=== PATIENT | male | born 1950 | race Two or more races ===

== ENCOUNTER 2017-02-26 15:18 | Emergency (ER) | payer OTHER ==
--- NOTE | 2017-02-26 15:49 | EDPHY ---
H & P Time Seen by Provider: 02/26/17 15:41 HPI/ROS: Chief complaint. Stomach pain HPI. 67-year-old male with history of Crohn's disease presents with 1 month history of periumbilical abdominal pain. It was somewhat worse last evening. He describes as sharp without radiation. No vomiting. Occasional diarrhea. No fever. No urinary symptoms. ROS Constitutional. no fever/chills, no weakness Eyes. no problems with vision ENT. no sore throat, no nasal drainage Cardiovascular. no chest pain Respiratory. no shortness of breath, no cough Abdominal. Mid abdominal pain without vomiting. Occasional diarrhea . no problems urinating MS. no calf pain/swelling, no neck/back pain, no joint pain Skin. no rash Lymph. no swollen glands Neuro. no headache, no dizziness, no difficulty walking or with speech Past Medical/Surgical History: Crohn's Social History: , nonsmoker, no alcohol Smoking Status: Current every day smoker Physical Exam: General Appearance: Alert well-developed male mild distress vital signs are stable Eyes: Pupils equal and round no pallor or injection. ENT, Mouth: Mucous membranes are moist. Respiratory: There are no retractions, lungs are clear to auscultation. Cardiovascular: Regular rate and rhythm. Gastrointestinal: Abdomen is soft with minimal tenderness in the periumbilical area. No rebound tenderness. No masses. Bowel sounds are normal Neurological: Awake and alert, sensory and motor exams grossly normal. Skin: Warm and dry, no rashes. Musculoskeletal: Neck is supple nontender. Extremities symmetrical, full range of motion. Psychiatric: Patient is oriented X 3, there is no agitation. Constitutional: Initial Vital Signs Temperature (C) 36.8 C 02/26/17 15:30 Heart Rate 63 02/26/17 15:30 Respiratory Rate 16 02/26/17 15:30 Blood Pressure 114/69 02/26/17 15:30 O2 Sat (%) 96 02/26/17 15:30 O2 Delivery Mode Room Air Allergies/Adverse Reactions: No Known Allergies Allergy (Verified 04/24/14 21:07) Home Medications: Medication Instructions Recorded Tamsulosin HCl [Flomax] 0.4 mg PO DAILY8 #4 cap 02/26/17 oxyCODONE/APAP 5/325 [Percocet 1 tab PO Q4-6PRN PRN #14 tab 02/26/17 5/325] Medical Decision Making - Diagnostics Imaging Results: Imaging Impressions Abdomen CT 02/26/17 16:02 Impression: 1. Right ureteral calculus at the L3 level with associated mild obstructive uropathy. 2. See above report for additional findings. Results called and discussed with RIDGE HURST M.D. on 02/26/2017 at 18:39 CT abdomen and pelvis with IV contrast shows a 4 x 6 mm stone in the mid right ureter with mild proximal hydronephrosis Procedures: IV normal saline ED Course/Re-evaluation: Re-evaluation 6:45 p.m.--patient is stable. He and I discussed imaging study results laboratory evaluation, treatment plan including importance of follow-up and further evaluation as well as criteria for return. He is comfortable going home. He expresses understanding and agreement I consulted and discussed the case with Dr. Chong who agrees with care-- pain medication, Flomax, urine strainers and will see the patient in the office. Differential Diagnosis: I thought the patient would have diverticulitis or exacerbation of Crohn's. No evidence for this or small-bowel obstruction. He has a kidney stone in the right mid ureter that apparently has been there for several weeks. No evidence for urinary tract infection or kidney failure - Data Points Laboratory Results: Laboratory Results 02/26/17 15:46 02/26/17 15:46 02/26/17 02/26/17 02/26/17 16:00 15:46 15:46 WBC 8.04 10^3/uL 10^3/uL (3.80-9.50) RBC 5.27 10^6/uL 10^6/uL (4.40-6.38) Hgb 15.6 g/dL g/dL (13.7-17.5) Hct 45.7 % % (40.0-51.0) MCV 86.7 fL fL (81.5-99.8) MCH 29.6 pg pg (27.9-34.1) MCHC 34.1 g/dL g/dL (32.4-36.7) RDW 13.5 % % (11.5-15.2) Plt Count 352 10^3/uL 10^3/uL (150-400) MPV 9.5 fL fL (8.7-11.7) Neut % (Auto) 58.6 % % (39.3-74.2) Lymph % (Auto) 31.5 % % (15.0-45.0) [place] % (Auto) 6.5 % % (4.5-13.0) Eos % (Auto) 2.6 % % (0.6-7.6) Baso % (Auto) 0.6 % % (0.3-1.7) Nucleat RBC Rel Count 0.0 % % (0.0-0.2) Absolute Neuts (auto) 4.71 10^3/uL 10^3/uL (1.70-6.50) Absolute Lymphs (auto) 2.53 10^3/uL 10^3/uL (1.00-3.00) Absolute Monos (auto) 0.52 10^3/uL 10^3/uL (0.30-0.80) Absolute Eos (auto) 0.21 10^3/uL 10^3/uL (0.03-0.40) Absolute Basos (auto) 0.05 10^3/uL 10^3/uL (0.02-0.10) Absolute Nucleated RBC 0.00 10^3/uL 10^3/uL (0-0.01) Immature Gran % 0.2 % % (0.0-1.1) Immature Gran # 0.02 10^3/uL 10^3/uL (0.00-0.10) Sodium 142 mEq/L mEq/L (134-144) Potassium 4.2 mEq/L mEq/L (3.5-5.2) Chloride 106 mEq/L mEq/L (97-110) Carbon Dioxide 26 mEq/l mEq/l (22-31) Anion Gap 10 mEq/L mEq/L (8-16) BUN 13 mg/dL mg/dL (7-23) Creatinine 0.5 mg/dL L mg/dL (0.7-1.3) Estimated GFR > 60 Glucose 108 mg/dL H mg/dL (70-100) Calcium 9.5 mg/dL mg/dL (8.5-10.4) Total Bilirubin 1.1 mg/dL mg/dL (0.1-1.4) Conjugated Bilirubin 0.4 mg/dL mg/dL (0.0-0.5) Unconjugated Bilirubin 0.7 mg/dL mg/dL (0.0-1.1) AST 31 IU/L IU/L (17-59) ALT 35 IU/L IU/L (21-72) Alkaline Phosphatase 95 IU/L IU/L (38-126) Total Protein 8.0 g/dL g/dL (6.3-8.2) Albumin 4.3 g/dL g/dL (3.5-5.0) Lipase 91.0 IU/L IU/L (23-300) Urine Color YELLOW Urine Appearance CLEAR Urine pH 5.0 (5.0-7.5) Ur Specific [place] 1.019 (1.002-1.030) Urine Protein NEGATIVE (NEGATIVE) Urine Ketones NEGATIVE (NEGATIVE) Urine Blood 1+ H (NEGATIVE) Urine Nitrate NEGATIVE (NEGATIVE) Urine Bilirubin NEGATIVE (NEGATIVE) Urine Urobilinogen NEGATIVE EU EU (0.2-1.0) Ur Leukocyte Esterase NEGATIVE (NEGATIVE) Urine RBC 5-10 /hpf H /hpf (0-3) Urine WBC 1-3 /hpf /hpf (0-3) Ur Epithelial Cells NONE SEEN /lpf /lpf (NONE-1+) Urine Mucus 3+ /lpf H /lpf (NONE-1+) Urine Glucose NEGATIVE (NEGATIVE) Medications Given: Discontinued Medications Sodium Chloride (Ns) 1,000 mls @ 0 mls/hr IV ONCE ONE PRN Reason: Wide Open Stop: 02/26/17 16:03 Last Admin: 02/26/17 16:25 Dose: 1,000 mls Departure - Departure Disposition: Home, Routine, Self-Care Clinical Impression: Renal colic on right side Condition: Good Instructions: How to Strain Your Urine (ED), Kidney Stones (ED) Additional Instructions: Drink plenty of fluids and stay hydrated. Ibuprofen 600 mg every 6 hours and Percocet as needed for pain. Strain all urine and save stone for Urology. Flomax also to help with passage of stone. Return for worsening pain, fever, vomiting. Call Urology on Tuesday to arrange follow-up and further evaluation. Referrals: KRISTOPHER SPRING [Primary Care Provider] - As per Instructions Elvin Chong MD [Medical Doctor] - 2-3 days, call for appt. Prescriptions: oxyCODONE/APAP 5/325 [Percocet 5/325] 1 tab PO Q4-6PRN PRN #14 tab PRN Reason: Pain, Moderate Tamsulosin HCl [Flomax] 0.4 mg PO DAILY8 #4 cap
[2017-02-26] MEDS ORDERED: NS 1,000 ML IV ONE (16:02)
[2017-02-26 16:08] LABS: % IMMATURE GRANULYOCYTES 0.2 % (0.0-1.1); ABSOLUTE IMMATURE GRANULOCYTES 0.02 10^3/uL (0.00-0.10); ADD DIFF? NO; ADD MORPH? NO; ADD SCAN? NO; ATYPICAL LYMPHOCYTE FLAG 20 (0-99); FRAGMENT RBC FLAG 0 (0-99); HEMATOCRIT 45.7 % (40.0-51.0); HEMOGLOBIN 15.6 g/dL (13.7-17.5); LEFT SHIFT FLG 0 (0-99); LIPEMIA HEMOLYSIS FLAG 90 (0-99); MEAN CELL HEMOGLOBIN 29.6 pg (27.9-34.1); MEAN CELL HEMOGLOBIN CONCENTR. 34.1 g/dL (32.4-36.7); MEAN CELL VOLUME 86.7 fL (81.5-99.8); MEAN PLATELET VOLUME 9.5 fL (8.7-11.7); PLATELET CLUMPS FLAG 10 (0-99); PLATELET COUNT 352 10^3/uL (150-400); RED BLOOD CELL COUNT 5.27 10^6/uL (4.40-6.38); RED CELL DISTRIBUTION WIDTH 13.5 % (11.5-15.2)
[2017-02-26 16:12] LABS: COLOR YELLOW; LEUKOCYTE ESTERASE,URINE NEGATIVE (NEGATIVE); NITRITE,URINE NEGATIVE (NEGATIVE)
[2017-02-26 16:13] LABS: ALANINE AMINOTRANSFERASE 35 IU/L (21-72); ALBUMIN 4.3 g/dL (3.5-5.0); ALKALINE PHOSPHATASE 95 IU/L (38-126); ANION GAP 10 mEq/L (8-16); ASPARTATE AMINOTRANSFERASE 31 IU/L (17-59); BILIRUBIN,TOTAL 1.1 mg/dL (0.1-1.4); CALCIUM 9.5 mg/dL (8.5-10.4); CARBON DIOXIDE 26 mEq/l (22-31); CHLORIDE 106 mEq/L (97-110); CREATININE 0.5 mg/dL (0.7-1.3); GLOMERULAR FILTRATION RATE > 60; GLUCOSE 108 mg/dL (70-100); POTASSIUM 4.2 mEq/L (3.5-5.2); SODIUM 142 mEq/L (134-144)
[2017-02-26 16:15] LABS: MUCUS 3+ /lpf (NONE-1+)
[2017-02-26] MEDS ORDERED: IOPAMIDOL (ISOVUE-300) 100 ML BTL IV ONE (16:43)
[2017-02-26 16:52] LABS: BILIRUBIN-CONJUGATED 0.4 mg/dL (0.0-0.5); BILIRUBIN-UNCONJUGATED 0.7 mg/dL (0.0-1.1)
[2017-02-26 18:15] VITALS: RESP 16
[2017-02-26] MEDS ORDERED: OXYCODONE/APAP 5/325MG PREPACK#4 BTL TAKEHOME ONE (18:59)
[2017-02-26] MEDS ORDERED: TAMSULOSIN HCL 0.4 MG CAP PO ONE (18:59)
[2017-02-26 19:20] VITALS: BP 125/71; PULSE 60; TEMP 97.5; O2SAT 93
== END 2017-02-26 19:20 | disposition home or self-care (01) ==
DX: N23 Unspecified renal colic (principal); F17.200 Nicotine dependence, unspecified, uncomplicated
CPT/HCPCS: Q9967

== ENCOUNTER 2017-03-31 02:59 | Emergency (ER) | payer OTHER ==
[2017-03-31 03:06] VITALS: RESP 16; TEMP 97.9
--- NOTE | 2017-03-31 03:59 | EDPHY ---
H & P Stated Complaint: rash HPI/ROS: HPI CHIEF COMPLAINT: Rash on both arms, Itchy HISTORY OF PRESENT ILLNESS: This patient very pleasant 67-year-old male significant past medical history for Crohn's disease and kidney stones, presents emergency room at 3 o'clock in the morning with a pruritic rash to the dorsum of both arms. States started earlier today. It itches. He does not have fever. States there is very fine blisters. Denies any contact abnormality , denies new medications or detergents. He cannot think what may have caused this rash. Denies fever chest pain or shortness of breath. He has never had a rash like this is only located to both arms. Past Medical History: Crohn's disease and kidney stones Past Surgical History: No significant surgical history Social History: Denies daily use of drugs alcohol tobacco Family History: Noncontributory ROS REVIEW OF SYSTEMS: A comprehensive 10 point review of systems is otherwise negative aside from elements mentioned in the history of present illness. Exam Constitutional triage nursing summary reviewed, vital signs reviewed, awake/ alert. Eyes normal conjunctivae and sclera, EOMI, PERRLA. HENT normal inspection, atraumatic, moist mucus membranes, no epistaxis, neck supple/ no meningismus, no raccoon eyes. Respiratory clear to auscultation bilaterally, normal breath sounds, no respiratory distress, no wheezing. Cardiovascular rate normal, regular rhythm, no murmur, no edema, distal pulses normal. Gastrointestinal soft, non-tender, no rebound, no guarding, normal bowel sounds, no distension, no pulsatile mass. Genitourinary no CVA tenderness. Musculoskeletal no midline vertebral tenderness, full range of motion, no calf swelling, no tenderness of extremities, no meningismus, good pulses, neurovascularly intact. Skin dorsum of both arms have a fine maculopapular rash very micro blisters, clear, and pleuritic, no particular purpura , no mucous membrane lesions Neurologic awake, alert and oriented x 3, AAOx3, moves all 4 extremities equally, motor intact, sensory intact, CN II-XII intact, normal cerebellar, normal vision, normal speech. Psychiatric normal mood/affect. Heme/Lymph/Immune no lymphadenopathy. Differential Diagnosis: Includes but is not limited to in a particular order, contact dermatitis, allergic reaction, doubt vasculitis, doubt infection Medical Decision Making: Plan for this patient recommend to continue to watch his rash closely that spreads or gets worse return to the emergency room. Take Benadryl for pruritus. Unclear exactly what caused this rash does appear to be a contact dermatitis. Patient understands return if the blisters get worse has worsening rash, fever, the rash spreads or pain. Source: Patient - Personal History Current Tetanus/Diphtheria Vaccine: Unsure Current Tetanus Diphtheria and Acellular Pertussis (TDAP): Unsure - Medical/Surgical History Hx Asthma: No Hx Chronic Respiratory Disease: No Hx Diabetes: No Hx Cardiac Disease: No Hx Renal Disease: No Hx Cirrhosis: No Hx Alcoholism: Yes Hx HIV/AIDS: No Hx Splenectomy or Spleen Trauma: No Other PMH: chrons, kidney stone - Social History Smoking Status: Current every day smoker Constitutional: Initial Vital Signs Temperature (C) 36.6 C 03/31/17 03:03 Heart Rate 69 03/31/17 03:03 Respiratory Rate 16 03/31/17 03:03 Blood Pressure 162/84 H 03/31/17 03:03 O2 Sat (%) 95 03/31/17 03:03 O2 Delivery Mode Room Air Allergies/Adverse Reactions: No Known Allergies Allergy (Verified 03/31/17 03:02) Home Medications: Medication Instructions Recorded Tamsulosin HCl [Flomax] 0.4 mg PO DAILY8 #4 cap 02/26/17 Lialda 03/31/17 Departure - Departure Disposition: Home, Routine, Self-Care Clinical Impression: Rash Condition: Good Instructions: Acute Rash (ED) Additional Instructions: 1. I would take Benadryl for the itching of your rash. 2. Return emergency room if you have any worsening symptoms includes spreading of rash, fever the rash is painful. Referrals: KRISTOPHER SPRING [Primary Care Provider] - As per Instructions
[2017-03-31 04:24] VITALS: BP 151/81; PULSE 65; O2SAT 97
== END 2017-03-31 04:24 | disposition home or self-care (01) ==
DX: R21 Rash and other nonspecific skin eruption (principal); F17.200 Nicotine dependence, unspecified, uncomplicated

== ENCOUNTER 2019-01-08 22:00 | Observation (INO) | payer OTHER ==
[2019-01-08] MEDS ORDERED: NS 1,000 ML IV ONE ×2 (22:34→22:39)
--- NOTE | 2019-01-08 22:34 | EDPHY ---
H & P Stated Complaint: Dehydrated x4 days, abd pain, muscle aches, nausea, crohns hx Time Seen by Provider: 01/08/19 22:34 HPI/ROS: HPI CHIEF COMPLAINT: Abdominal pain, muscle aches/chills, feeling sick. HISTORY OF PRESENT ILLNESS: Patient is a 68-year-old male, history of Crohn's disease, presents emergency room with abdominal pain and complaints that he feels that he is dehydrated. He also reports to me that 4 days ago he stops drinking alcohol. He states he drank alcohol regularly usually a pt per day. Typically drinks a pt of Bacardi. States he stopped 4 days ago as he what wishes to stop drinking alcohol. He denies any chest pain or shortness of breath. His main complaint is abdominal pain in lower abdomen. He has not had any nausea vomiting or diarrhea he denies any bloody stools. He also reports some muscle aches throughout his whole body, chills, joint pain. Does not recall a fever. Denies cough. Patient complains of lower abdominal pain crampy in nature. Periumbilical. Past Medical History: Crohn's disease, daily alcohol use with alcoholism Past Surgical History: No recent surgery Social History: Daily alcohol use. 4 days ago. Denies drugs. He is employed and works in a kitchen. Family History: Noncontributory ROS REVIEW OF SYSTEMS: 10 Systems were reviewed and negative with the exception of the elements mentioned in the history of present illness. Exam Constitutional appears well nontoxic triage nursing summary reviewed, vital signs reviewed, awake/alert. Eyes normal conjunctivae and sclera, EOMI, PERRLA. HENT normal inspection, atraumatic, moist mucus membranes, no epistaxis, neck supple/ no meningismus, no raccoon eyes. Respiratory clear to auscultation bilaterally, normal breath sounds, no respiratory distress, no wheezing. Cardiovascular rate normal, regular rhythm, no murmur, no edema, distal pulses normal. Gastrointestinal mild tender palpation lower abdomen, no peritoneal signs no rebound, no guarding, normal bowel sounds, no distension, no pulsatile mass. Genitourinary no CVA tenderness. Musculoskeletal no midline vertebral tenderness, full range of motion, no calf swelling, no tenderness of extremities, no meningismus, good pulses, neurovascularly intact. Skin pink, warm, & dry, no rash, skin atraumatic. Neurologic awake, alert and oriented x 3, AAOx3, moves all 4 extremities equally, motor intact, sensory intact, CN II-XII intact, normal cerebellar, normal vision, normal speech. Psychiatric normal mood/affect. Heme/Lymph/Immune no lymphadenopathy. Differential Diagnosis: Differential diagnosis includes but is not limited to and in no particular order: Bowel obstruction, appendicitis, gallbladder disease, diverticulitis, colitis, enteritis, perforated viscus, gastritis, GERD , esophagitis, urinary tract infection, pyelonephritis, kidney stones Medical Decision Making: Plan for this patient IV establishment with IV fluid bolus, basic labs, influenza, CT scan abdomen pelvis with IV contrast given lower abdominal pain and re-evaluate. Re-evaluation: CT scan abdomen pelvis with IV contrast faxed to me by direct Radiology 12:42 a.m. Shows pneumonia in the right lung base, additionally mild distal transverse and left-sided colitis most likely inflammatory given the patient's history Given the patient's illness, muscle aches, joint pain, abdominal pain, dehydration CT imaging showing colitis, and right lower lobe pneumonia plan will be for blood cultures, IV Rocephin and IV azithromycin. Also admit to the hospitalist service. Spoke with the hospitalist service Dr. Grady Agrees to admit. Patient updated about ct results, endorses cough, but not bad. Agrees for admission. Source: Patient - Personal History Current Tetanus Diphtheria and Acellular Pertussis (TDAP): Unsure - Medical/Surgical History Hx Asthma: No Hx Chronic Respiratory Disease: No Hx Diabetes: No Hx Cardiac Disease: No Hx Renal Disease: No Hx Cirrhosis: No Hx Alcoholism: Yes Hx HIV/AIDS: No Hx Splenectomy or Spleen Trauma: No Other PMH: crohn's, kidney stone - Social History Smoking Status: Current every day smoker Constitutional: Initial Vital Signs Temperature (C) 37.1 C 01/08/19 22:02 Heart Rate 91 01/08/19 22:02 Respiratory Rate 17 01/08/19 22:02 Blood Pressure 164/104 H 01/08/19 22:02 O2 Sat (%) 94 01/08/19 22:02 O2 Delivery Mode Room Air Allergies/Adverse Reactions: No Known Allergies Allergy (Verified 01/08/19 22:06) Home Medications: Medication Instructions Recorded Mesalamine [Lialda] 4.8 gm PO DAILY 03/31/17 Acetaminophen [Tylenol 325mg (*)] 650 mg PO Q6 PRN 01/09/19 Cholecalciferol Vit D3 [Vitamin D3 1,000 units PO DAILY 01/09/19 (*)] Multivitamins [Multivitamin (*)] 1 each PO DAILY 01/09/19 [place]-3 Fatty Acids [Fish Oil 1000 1,000 mg PO DAILY 01/09/19 mg (*)] predniSONE 20 mg PO DAILY #5 tablet 01/09/19 Medical Decision Making - Data Points Laboratory Results: Laboratory Results 01/08/19 22:41 01/08/19 22:41 Medications Given: Discontinued Medications Cholecalciferol (Vitamin D) 1,000 units PO DAILY ANA Stop: 07/08/19 09:44 Last Admin: 01/09/19 11:28 Dose: 1,000 units Enoxaparin Sodium (Lovenox) 40 mg SC DAILY ANA Stop: 07/08/19 08:59 Last Admin: 01/09/19 08:56 Dose: 40 mg Sodium Chloride (Ns) 1,000 mls @ 0 mls/hr IV EDNOW ONE; Wide Open PRN Reason: Protocol Stop: 01/08/19 22:35 Last Admin: 01/08/19 22:39 Dose: 1,000 mls Sodium Chloride (Ns) 1,000 mls @ 0 mls/hr IV ONCE ONE PRN Reason: Wide Open Stop: 01/08/19 22:40 Last Admin: 01/08/19 22:41 Dose: 1,000 mls Azithromycin 500 mg/ Dextrose 255 mls @ 255 mls/hr IV EDNOW ONE PRN Reason: Protocol Stop: 01/09/19 03:39 Last Admin: 01/09/19 03:28 Dose: 255 mls Ceftriaxone Sodium/Dextrose (Rocephin 1 Gm (Premix)) 50 mls @ 100 mls/hr IV EDNOW ONE PRN Reason: Protocol Stop: 01/09/19 03:09 Last Admin: 01/09/19 02:47 Dose: 50 mls Sodium Chloride (Ns) 1,000 mls @ 100 mls/hr IV CONT ANA Stop: 07/08/19 02:59 Last Admin: 01/09/19 09:55 Dose: 1,000 mls Methylprednisolone Sodium Succinate (Solu-Medrol) 125 mg IVP EDNOW ONE Stop: 01/09/19 02:52 Last Admin: 01/09/19 02:58 Dose: 125 mg Miscellaneous Medication (Mesalamine [Lialda]) 4.8 gm PO DAILY ANA Stop: 07/08/19 09:44 Last Admin: 01/09/19 11:29 Dose: Not Given Multivitamins (Tab-A-Dylan) 1 each PO DAILY ANA Stop: 07/08/19 09:44 Last Admin: 01/09/19 11:28 Dose: 1 each [id number] Ethyl Esters (Fish Oil) 1,000 mg PO DAILY ANA Stop: 07/08/19 09:44 Last Admin: 01/09/19 11:28 Dose: 1,000 mg Prednisone (Prednisone) 20 mg PO DAILY ANA Stop: 07/08/19 09:59 Last Admin: 01/09/19 11:28 Dose: 20 mg Departure - Departure Disposition: [facility] Acute Clinical Impression: Colitis, Dehydration Pneumonia Qualifiers: Pneumonia type: due to unspecified organism Laterality: right Lung location: lower lobe of lung Qualified Code(s): J18.1 - Lobar pneumonia, unspecified organism Condition: Good
[2019-01-08 22:52] LABS: PLATELET COUNT 367 10^3/uL (150-400)
[2019-01-08] MEDS ORDERED: IOPAMIDOL (ISOVUE-300) 100 ML BTL ONE (23:07)
[2019-01-09] MEDS ORDERED: AZITHROMYCIN IV 500 MG in D5W 250 ML IV ONE (02:40)
[2019-01-09] MEDS ORDERED: ONDANSETRON DISINTEGRATING 4 MG TAB PO PRN (02:51)
[2019-01-09] MEDS ORDERED: ACETAMINOPHEN 325 MG TAB PO PRN ×2 (02:51→09:41)
[2019-01-09] MEDS ORDERED: methylPREDNISolone SOD SUCC 125 MG/2 ML VIAL IVP ONE (02:51)
[2019-01-09] MEDS ORDERED: oxyCODONE IR 5 MG TAB PO PRN (02:51)
[2019-01-09] MEDS ORDERED: ONDANSETRON 4 MG/2 ML VIAL IVP PRN (02:51)
[2019-01-09] MEDS ORDERED: PROMETHAZINE HCL 25 MG/ML INJ IVP PRN (02:51)
[2019-01-09] MEDS ORDERED: NS 1,000 ML IV SCH (03:00)
--- NOTE | 2019-01-09 03:51 | PDGENHP ---
History and Physical - Chief Complaint Abdominal pain - History of Present Illness 68 yo M w/ hx of Crohn's presents with abdominal pain. The patient has had 2 weeks of abdominal pain. Today, the pain got much worse so he came to the ED. He has a hx of Crohn's and takes mesalamine for this. He denies diarrhea or bloody stools. Over the last day or so he has noted chills and diffuse joint pains as well. In the ED his CT evaluation is notable for mild colitis, which is likely inflammatory. He is being admitted for pain control and GI evaluation. Of note, the patient drinks 1/2 pint of rum daily. His last drink was 4 days ago. He is not currently displaying any signs of ETOH w/d. Case discussed with ED physician Dr. Lynn; records reviewed and summarized above. History Information - Allergies/Home Medication List Allergies/Adverse Reactions: No Known Allergies Allergy (Verified 01/08/19 22:06) Home Medications: Lialda 03/31/17 [Last Taken Unknown] I have personally reviewed and updated: family history, medical history - Past Medical History Crohn's Disease - Surgical History Additional surgical history: Lithotripsy - Family History Additional family history: Denies family hx of IBD - Social History Smoking Status: Current every day smoker Review of Systems Review of Systems: ROS: 10pt was reviewed & negative except for what was stated in HPI & below Physical Exam Physical Exam: Temp Pulse Resp BP Pulse Ox 36.8 C 78 18 118/75 92 01/09/19 03:27 01/09/19 03:27 01/09/19 03:27 01/09/19 03:27 01/09/19 03:27 Constitutional: no apparent distress, appears nourished Eyes: PERRL, EOMI Ears, Nose, Mouth, Throat: moist mucous membranes, no oral mucosal ulcers Cardiovascular: regular rate and rhythym, no murmur, rub, or gallop Respiratory: no respiratory distress, no rales or rhonchi Gastrointestinal: normoactive bowel sounds, soft, non-tender abdomen Skin: warm, normal color Musculoskeletal: full muscle strength, no muscle tenderness Neurologic: AAOx3, CN II-XII Intact Psychiatric: interacting appropriately, not anxious Lab Data & Imaging Review 01/08/19 22:41 01/08/19 22:41 WBC 13.86 10^3/uL (3.80-9.50) H 01/08/19 22:41 RBC 4.92 10^6/uL (4.40-6.38) 01/08/19 22:41 Hgb 14.4 g/dL (13.7-17.5) 01/08/19 22:41 Hct 42.0 % (40.0-51.0) 01/08/19 22:41 MCV 85.4 fL (81.5-99.8) 01/08/19 22:41 MCH 29.3 pg (27.9-34.1) 01/08/19 22:41 MCHC 34.3 g/dL (32.4-36.7) 01/08/19 22:41 RDW 13.5 % (11.5-15.2) 01/08/19 22:41 Plt Count 367 10^3/uL (150-400) 01/08/19 22:41 MPV 8.6 fL (8.7-11.7) L 01/08/19 22:41 Neut % (Auto) 76.0 % (39.3-74.2) H 01/08/19 22:41 Lymph % (Auto) 13.6 % (15.0-45.0) L 01/08/19 22:41 [place] % (Auto) 8.3 % (4.5-13.0) 01/08/19 22:41 Eos % (Auto) 1.2 % (0.6-7.6) 01/08/19 22:41 Baso % (Auto) 0.6 % (0.3-1.7) 01/08/19 22:41 Nucleat RBC Rel Count 0.0 % (0.0-0.2) 01/08/19 22:41 Absolute Neuts (auto) 10.54 10^3/uL (1.70-6.50) H 01/08/19 22:41 Absolute Lymphs (auto) 1.88 10^3/uL (1.00-3.00) 01/08/19 22:41 Absolute Monos (auto) 1.15 10^3/uL (0.30-0.80) H 01/08/19 22:41 Absolute Eos (auto) 0.17 10^3/uL (0.03-0.40) 01/08/19 22:41 Absolute Basos (auto) 0.08 10^3/uL (0.02-0.10) 01/08/19 22:41 Absolute Nucleated RBC 0.00 10^3/uL (0-0.01) 01/08/19 22:41 Immature Gran % 0.3 % (0.0-1.1) 01/08/19 22:41 Immature Gran # 0.04 10^3/uL (0.00-0.10) 01/08/19 22:41 Sodium 130 mEq/L (135-145) L 01/08/19 22:41 Potassium 3.9 mEq/L (3.5-5.2) 01/08/19 22:41 Chloride 99 mEq/L (97-110) 01/08/19 22:41 Carbon Dioxide 22 mEq/l (22-31) 01/08/19 22:41 Anion Gap 9 mEq/L (6-14) 01/08/19 22:41 BUN 16 mg/dL (7-23) 01/08/19 22:41 Creatinine 0.7 mg/dL (0.7-1.3) 01/08/19 22:41 Estimated GFR > 60 01/08/19 22:41 Glucose 164 mg/dL (70-100) H 01/08/19 22:41 Calcium 8.8 mg/dL (8.5-10.4) 01/08/19 22:41 Total Bilirubin 0.8 mg/dL (0.1-1.4) 01/08/19 22:41 Conjugated Bilirubin 0.3 mg/dL (0.0-0.5) 01/08/19 22:41 Unconjugated Bilirubin 0.5 mg/dL (0.0-1.1) 01/08/19 22:41 AST 25 IU/L (17-59) 01/08/19 22:41 ALT 18 IU/L (21-72) L 01/08/19 22:41 Alkaline Phosphatase 86 IU/L (38-126) 01/08/19 22:41 Total Protein 7.1 g/dL (6.3-8.2) 01/08/19 22:41 Albumin 3.8 g/dL (3.5-5.0) 01/08/19 22:41 Lipase 96 IU/L (23-300) 01/08/19 22:41 Urine Color DEBORAH 01/08/19 22:47 Urine Appearance CLEAR 01/08/19 22:47 Urine pH 5.0 (5.0-7.5) 01/08/19 22:47 Ur Specific [place] 1.027 (1.002-1.030) 01/08/19 22:47 Urine Protein NEGATIVE (NEGATIVE) 01/08/19 22:47 Urine Ketones TRACE (NEGATIVE) H 01/08/19 22:47 Urine Blood NEGATIVE (NEGATIVE) 01/08/19 22:47 Urine Nitrate NEGATIVE (NEGATIVE) 01/08/19 22:47 Urine Bilirubin NEGATIVE (NEGATIVE) 01/08/19 22:47 Urine Urobilinogen NEGATIVE EU (0.2-1.0) 01/08/19 22:47 Ur Leukocyte Esterase NEGATIVE (NEGATIVE) 01/08/19 22:47 Urine Glucose NEGATIVE (NEGATIVE) 01/08/19 22:47 Nasal Influenza A PCR NEGATIVE FOR FLU A (NEGATIVE) 01/08/19 22:50 Nasal Influenza B PCR NEGATIVE FOR FLU B (NEGATIVE) 01/08/19 22:50 Assessment & Plan Assessment: 68 yo M w/ hx of Crohn's presents with abdominal pain and imaging findings c/w colitis. Plan: 1. Abdominal pain - Most likely represents acute Crohn's flare. CT (personally reviewed/interpreted) demonstrates mild colitis in transverse and descending colon, which per radiology is most likely inflammatory in nature. - Methylprednisolone 125 mg x1 - NPO, mIVF, pain control - GI consult in the morning - GI PCR if diarrhea develops 2. Crohn's disease - Patient takes mesalamine as an outpatient and follows with a manager insurance in [place]. - Acute management as above 3. Radiographic pneumonia - This was incidentally found on CT of the abdomen. The patient denies shortness of breath or cough. - S/p CTX/Azithro in the ED - Will observe off of further antibiotics - Check procalcitonin 4. Hyponatremia - Likely due to dehydration. - Monitor BMP after IVF Diet - NPO, mIVF, ADAT Code - Full Ppx - Lovenox Dispo - Admit under observation status
[2019-01-09 07:37] LABS: PLATELET COUNT 411 10^3/uL (150-400)
[2019-01-09] MEDS ORDERED: ENOXAPARIN 40 MG/0.4 ML SYR SC SCH (09:00)
[2019-01-09] MEDS ORDERED: OMEGA-3 FATTY ACIDS 1,000 MG CAP PO SCH (09:45)
[2019-01-09] MEDS ORDERED: CHOLECALCIFEROL VIT D3 1,000 UNITS TAB PO SCH (09:45)
[2019-01-09] MEDS ORDERED: MULTIVITAMINS 1 EACH TAB PO SCH (09:45)
[2019-01-09] MEDS ORDERED: Mesalamine [Lialda] 4.8 GM PO SCH (09:45)
[2019-01-09] MEDS ORDERED: predniSONE 20 MG TAB PO SCH (10:00)
[2019-01-09 11:55] VITALS: BP 118/70
--- NOTE | 2019-01-09 13:07 | GDS ---
[f rep st] DISCHARGE SUMMARY DISCHARGE DIAGNOSES: 1. Abdominal pain. 2. Crohn disease. 3. Hyponatremia. STUDIES AND PROCEDURES DONE: CT of the abdomen. PHYSICAL EXAM: GENERAL: The patient is alert. VITAL SIGNS: Afebrile at 37.1, pulse 70, respirator y rate 18, and blood pressure 118/70. He is saturating 91% on room air. I have seen and evaluated t [place] patient on the day of discharge. HOSPITAL COURSE: The patient is a 68-year-old male, who presented to the emergency room with complai nts of abdominal pain. He was evaluated and diagnosed with: 1. Abdominal pain. This is in the setting of history of Crohn disease. CT scan of the abdomen demo nstrated mild colitis in the transverse and descending colon. The patient received 125 mg of methylp rednisolone, and his symptoms have significantly improved. I have discussed the patient's dispositio n with Gastroenterology, who are in agreement with this plan. I will provide him a prednisone prescr iptions at the time of disposition, and he will follow up with his investment executive at the [facility] this week. 2. History of Crohn disease. The patient will continue to take his mesalamine and follow up with [facility] investment executive in the next 1 to 2 days. 3. Questionable radiological pneumonia. CT scan demonstrated a right lower lobe infiltrate. The nelson chand is afebrile on room air with no signs of acute infectious pneumonia. A procalcitonin was withi n normal limits. He will not be treated with antibiotic therapy for this abnormality, but does requi re followup in the outpatient setting with his primary care physician to assure resolution. He has b een educated about this and is aware of this. 4. Hyponatremia. This is in the setting of mild dehydration. He has responded well to IV fluids, w ith his sodium returning to normal. There are no pending studies. DISCHARGE MEDICATIONS: Please refer to EMR form. I have provided the patient a prescription for pre dnisone 20 mg daily. FOLLOWUP: Followup will be with his investment executive at the [place] in the next 1 to 2 days. T kamilla patient is in agreement with this plan. /[id number]/MODL
== END 2019-01-09 12:02 | disposition home or self-care (01) ==
LOC: F3E 01-09 03:50
PROVIDERS: ADMIT Student in an Organized Health Care Education/Training Program; ATTEND Hospitalist
DX: K52.9 Noninfective gastroenteritis and colitis, unspecified (principal); K50.10 Crohn's disease of large intestine without complications; J18.9 Pneumonia, unspecified organism; E87.1 Hypo-osmolality and hyponatremia; E86.0 Dehydration; F10.20 Alcohol dependence, uncomplicated; F17.210 Nicotine dependence, cigarettes, uncomplicated
CPT/HCPCS: 74177; G0378; 96365; J0456; J0696; J1650; J2930; J7512; Q9967